=== PATIENT | female | born 1960 | race Caucasian/White ===

== ENCOUNTER 2017-11-16 12:04 | Emergency (ER) | payer OTHER ==
[~2017-11-16] VITALS: Ht 165.1 cm; Wt 106.1 kg
[~2017-11-16 12:04] MED LIST: ATORVASTATIN CA40 MG PO; CIPRO500 MG PO; CLON.1 PO; Glucophage1000 MG PO; METO25 PO; OMEP40CA12 PO; PARO20 PO; Pantoprazole So40 MG PO; Paxil40 MG; SUCR1 PO; VENL37.5 PO; VENL75ER PO; WOMEN'S DAILY1 EACH PO; ZESTORETIC 20-121 EA PO
[2017-11-16] MEDS ORDERED: ADMELOG SO100 UNIT/1 (12:22)
[2017-11-16] MEDS ORDERED: PROG100 (12:22)
[2017-11-16] MEDS ORDERED: Estradiol0.5 MG (12:22)
[2017-11-16] MEDS ORDERED: ZESTORETIC 20-121 EA PO (12:23)
[2017-11-16] MEDS ORDERED: PARO20 PO (12:23)
[2017-11-16] MEDS ORDERED: AMIT25 (12:24)
[2017-11-16] MEDS ORDERED: METO50 PO (12:24)
[2017-11-16] MEDS ORDERED: Metformin HCl1000 MG PO (12:24)
[2017-11-16] MEDS ORDERED: Mobic15 MG (12:24)
[2017-11-16] MEDS ORDERED: OMEPRAZOLE MAGN20 MG PO (12:24)
[2017-11-16] MEDS ORDERED: GABA300 PO (12:25)
[2017-11-16] MEDS ORDERED: INSULANPEN SC (12:25)
[2017-11-16 12:49] LABS: BASOPHILS ABSOLUTE AUTO 0.02 K/mm3 (0.00-0.23); BASOPHILS PERCENT AUTO 0 % (0-2); EOSINOPHILS ABSOLUTE AUTO 0.13 K/mm3 (0.00-0.68); EOSINOPHILS PERCENT AUTO 2 % (0-6); Hematocrit 36.7 % (33.0-51.0); Hemoglobin 11.8 g/dL (11.5-16.0); IMMATURE GRAN ABSOLUTE AUTO 0.02 K/mm3 (0.00-0.10); IMMATURE GRAN PERCENT AUTO 0 % (0-1); LYMPHOCYTES ABSOLUTE AUTO 2.81 K/mm3 (0.84-5.20); LYMPHOCYTES PERCENT AUTO 37 % (21-46); MONOCYTES ABSOLUTE AUTO 0.54 K/mm3 (0.16-1.47); MONOCYTES PERCENT AUTO 7 % (4-13); Mean Corpuscular HGB 26.3 pg (26.0-34.0); Mean Corpuscular HGB Conc 32.2 g/dL (31.5-36.5); Mean Corpuscular Volume 82 fL (80-100); Mean Platelet Volume 10.2 fL (9.1-12.4); NEUTROPHILS ABSOLUTE AUTO 3.99 K/mm3 (1.96-9.15); NEUTROPHILS PERCENT AUTO 53 % (41-73); Platelet Count 314 K/mm3 (150-400); RDW Coefficient Variation 13.4 % (11.7-14.2); RDW Standard Deviation 39.6 fL (35.1-46.3); Red Blood Cell Count 4.48 M/mm3 (3.80-5.20); White Blood Cell Count 7.51 K/mm3 (4.00-11.30)
[2017-11-16 13:11] LABS: Alanine Aminotransfer (ALT/SGP 22 U/L (12-78); Albumin, Blood 3.4 g/dL (3.4-5.0); Albumin/Globulin Ratio 0.8 (0.8-1.8); Alk Phos 109 U/L (50-136); Anion Gap 7 mmol/L (6-16); Aspartate Aminotrans (AST/SGOT 17 U/L (12-37); Bilirubin, Total 0.2 mg/dL (0.1-1.0); Blood Urea Nitrogen 19 mg/dL (8-24); Bun/Creatinine Ratio 23.3 (12.0-20.0); CO2, Blood 29 mmol/L (21-32); Calcium, Blood 9.5 mg/dL (8.5-10.1); Chloride, Blood 103 mmol/L (98-108); Creatinine, Blood 0.82 mg/dL (0.40-1.00); Globulin, Blood 4.1 g/dL (2.2-4.0); Glomerular Filtration Rate >60 (60-); Glucose, Blood 181 mg/dL (70-99); Magnesium, Blood 1.7 mg/dL (1.6-2.4); Potassium, Blood 3.9 mmol/L (3.5-5.5); Sodium, Blood 139 mmol/L (136-145); Total Protein, Blood 7.5 g/dL (6.4-8.2)
[2017-11-16 13:19] LABS: Troponin I <0.015 ng/mL (0.000-0.040)
[2017-11-16 13:21] LABS: Thyroid Stimulating Hormone 0.646 uIU/mL (0.360-4.800)
== END 2017-11-16 14:35 | disposition home or self-care (01) ==
LOC: ER 12:04
PROVIDERS: Emergency Medicine
DX: R00.2 Palpitations (principal); R42 Dizziness and giddiness; I10 Essential (primary) hypertension; I25.2 Old myocardial infarction; F32.9 Major depressive disorder, single episode, unspecified; F41.9 Anxiety disorder, unspecified; E11.9 Type 2 diabetes mellitus without complications; I48.91 Unspecified atrial fibrillation; Z79.899 Other long term (current) drug therapy; Z79.4 Long term (current) use of insulin
CPT/HCPCS: 36415; 80053; 82947; 83735; 84443; 84484; 85025; 93005; 93010; 96360; 99284; J7030